=== PATIENT | male | born 1965 | race Caucasian/White ===

== ENCOUNTER → 2017-10-29 | Outpatient (CLI) | payer OTHER ==
[~2017-10-29] MED LIST: ACEDIPPM PO; ACET500; ALBU90OI INH; Bactrim Ds Tab1 EACH PO; CLOP75 PO; HYDACE5 PO; LIVALO2 MG PO; LO-DOSE ASPIRIN81 MG PO; LOSA50 PO; Lopressor 50 mg50 MG PO; METF500 PO; Nicoderm Cq1 EAC1 TD; Omeprazole20 M1; PIOG15 PO; RXCLIN PO
== END ==
LOC: LAB 15:56
DX: Z48.817 Encounter for surgical aftercare following surgery on the skin and subcutaneous tissue (principal); L08.9 Local infection of the skin and subcutaneous tissue, unspecified
CPT/HCPCS: 87070; 87147; 87205

== ENCOUNTER → 2018-01-18 | Outpatient (CLI) | payer OTHER ==
[2018-01-18 13:22] LABS: Microalb/Creat Ratio UR, Rand 14.902 mg/g (0.000-30.000); Microalbumin, Random Urine 15.2 mg/L (0.000-20.000)
== END | disposition home or self-care (01) ==
LOC: LAB 08:30
PROVIDERS: Physician Assistant
DX: E11.65 Type 2 diabetes mellitus with hyperglycemia (principal)
CPT/HCPCS: 82043; 82570

== ENCOUNTER 2018-01-20 06:53 | Day surgery (SDC) | payer OTHER ==
[~2018-01-20] VITALS: Ht 172.7 cm; Wt 98.2 kg
[~2018-01-20 06:53] MED LIST changes: -CLOP75 PO; -LIVALO2 MG PO; -LO-DOSE ASPIRIN81 MG PO; -Lopressor 50 mg50 MG PO; -Nicoderm Cq1 EAC1 TD
[2018-01-20] MEDS ORDERED: CLOP75 PO (07:22)
[2018-01-20] MEDS ORDERED: LIVALO2 MG PO (07:23)
[2018-01-21 04:28] LABS: BASOPHILS ABSOLUTE AUTO 0.05 K/mm3 (0.00-0.23); BASOPHILS PERCENT AUTO 0 % (0-2); EOSINOPHILS PERCENT AUTO 2 % (0-6); Hematocrit 40.7 % (37.0-53.0); Hemoglobin 13.7 g/dL (13.5-17.5); IMMATURE GRAN ABSOLUTE AUTO 0.06 K/mm3 (0.00-0.10); IMMATURE GRAN PERCENT AUTO 1 % (0-1); LYMPHOCYTES ABSOLUTE AUTO 2.82 K/mm3 (0.84-5.20); LYMPHOCYTES PERCENT AUTO 25 % (21-46); MONOCYTES ABSOLUTE AUTO 0.85 K/mm3 (0.16-1.47); MONOCYTES PERCENT AUTO 8 % (4-13); Mean Corpuscular HGB 32.1 pg (26.0-34.0); Mean Corpuscular HGB Conc 33.7 g/dL (31.5-36.5); Mean Corpuscular Volume 95 fL (80-100); Mean Platelet Volume 9.6 fL (9.1-12.4); NEUTROPHILS ABSOLUTE AUTO 7.21 K/mm3 (1.96-9.15); NEUTROPHILS PERCENT AUTO 65 % (41-73); Platelet Count 268 K/mm3 (150-400); RDW Coefficient Variation 13.8 % (11.7-14.2); RDW Standard Deviation 48.1 fL (35.1-46.3); Red Blood Cell Count 4.27 M/mm3 (4.30-5.90); White Blood Cell Count 11.19 K/mm3 (4.00-11.30)
[2018-01-21 04:50] LABS: Anion Gap 7 mmol/L (6-16); Blood Urea Nitrogen 14 mg/dL (8-24); Bun/Creatinine Ratio 25.4 (12.0-20.0); CO2, Blood 22 mmol/L (21-32); Calcium, Blood 8.1 mg/dL (8.5-10.1); Chloride, Blood 109 mmol/L (98-108); Creatinine, Blood 0.55 mg/dL (0.60-1.20); Glomerular Filtration Rate >60 (60-); Glucose, Blood 146 mg/dL (70-99); Potassium, Blood 3.9 mmol/L (3.5-5.5); Sodium, Blood 138 mmol/L (136-145)
[2018-01-21] MEDS ORDERED: LO-DOSE ASPIRIN81 MG PO (08:12)
[2018-01-21] MEDS ORDERED: Lopressor 50 mg50 MG PO (08:41)
[2018-01-21] MEDS ORDERED: Nicoderm Cq1 EAC1 TD (08:42)
== END 2018-01-21 09:27 | disposition home or self-care (01) ==
LOC: MHTC 06:53 → ICUE 13:30 → PCU 22:30 → MHTC 01-21 03:41 → PCU 01-21 03:43 → MHTC 01-21 09:27
PROVIDERS: Internal Medicine Interventional Cardiology
PROC: B241ZZ3 Ultrasonography of Multiple Coronary Arteries, Intravascular (ICD-10-PCS; principal; 2018-01-20)
PROC: 027034Z Dilation of Coronary Artery, One Artery with Drug-eluting Intraluminal Device, Percutaneous Approach (ICD-10-PCS; principal; 2018-01-20)
PROC: B211YZZ Fluoroscopy of Multiple Coronary Arteries using Other Contrast (ICD-10-PCS; principal; 2018-01-20)
PROC: 4A023N7 Measurement of Cardiac Sampling and Pressure, Left Heart, Percutaneous Approach (ICD-10-PCS; principal; 2018-01-20)
DX: I25.118 Atherosclerotic heart disease of native coronary artery with other forms of angina pectoris (principal); E11.9 Type 2 diabetes mellitus without complications; I10 Essential (primary) hypertension; E78.5 Hyperlipidemia, unspecified; F17.210 Nicotine dependence, cigarettes, uncomplicated; E78.00 Pure hypercholesterolemia, unspecified; Z82.49 Family history of ischemic heart disease and other diseases of the circulatory system; N19 Unspecified kidney failure
CPT/HCPCS: 36415; 80048; 85025; 85347; 85730; 92978; 93005; 93010; 93454; 99152; 99153; C1753; C1760; C1769; C1874; C1894; C9600; J0360; J1644; J2250; J3010; J7030; Q9967

== ENCOUNTER 2018-01-25 22:30 | Emergency (ER) | payer OTHER ==
[~2018-01-25] VITALS: Ht 172.7 cm; Wt 96.6 kg
[~2018-01-25 22:30] MED LIST changes: +CLOP75 PO; +LIVALO2 MG PO; +LO-DOSE ASPIRIN81 MG PO; +Lopressor 50 mg50 MG PO; +Nicoderm Cq1 EAC1 TD
[2018-01-25 23:04] LABS: BASOPHILS ABSOLUTE AUTO 0.05 K/mm3 (0.00-0.23); BASOPHILS PERCENT AUTO 0 % (0-2); EOSINOPHILS ABSOLUTE AUTO 0.37 K/mm3 (0.00-0.68); EOSINOPHILS PERCENT AUTO 3 % (0-6); Hematocrit 43.9 % (37.0-53.0); IMMATURE GRAN ABSOLUTE AUTO 0.07 K/mm3 (0.00-0.10); IMMATURE GRAN PERCENT AUTO 1 % (0-1); LYMPHOCYTES ABSOLUTE AUTO 3.35 K/mm3 (0.84-5.20); LYMPHOCYTES PERCENT AUTO 27 % (21-46); MONOCYTES PERCENT AUTO 6 % (4-13); Mean Corpuscular HGB 32.1 pg (26.0-34.0); Mean Corpuscular HGB Conc 34.2 g/dL (31.5-36.5); Mean Corpuscular Volume 94 fL (80-100); Mean Platelet Volume 9.2 fL (9.1-12.4); NEUTROPHILS ABSOLUTE AUTO 7.77 K/mm3 (1.96-9.15); NEUTROPHILS PERCENT AUTO 63 % (41-73); Platelet Count 283 K/mm3 (150-400); RDW Coefficient Variation 13.2 % (11.7-14.2); RDW Standard Deviation 45.2 fL (35.1-46.3); Red Blood Cell Count 4.68 M/mm3 (4.30-5.90); White Blood Cell Count 12.41 K/mm3 (4.00-11.30)
[2018-01-25 23:26] LABS: Alanine Aminotransfer (ALT/SGP 29 U/L (12-78); Albumin, Blood 3.5 g/dL (3.4-5.0); Albumin/Globulin Ratio 0.8 (0.8-1.8); Alk Phos 91 U/L (50-136); Anion Gap 10 mmol/L (6-16); Aspartate Aminotrans (AST/SGOT 16 U/L (12-37); Bilirubin, Total 0.2 mg/dL (0.1-1.0); Blood Urea Nitrogen 14 mg/dL (8-24); CO2, Blood 22 mmol/L (21-32); Chloride, Blood 104 mmol/L (98-108); Creatinine, Blood 0.56 mg/dL (0.60-1.20); Globulin, Blood 4.5 g/dL (2.2-4.0); Glomerular Filtration Rate >60 (60-); Glucose, Blood 118 mg/dL (70-99); Potassium, Blood 3.7 mmol/L (3.5-5.5); Sodium, Blood 136 mmol/L (136-145); Troponin I <0.015 ng/mL (0.000-0.040)
== END 2018-01-25 23:59 | disposition home or self-care (01) ==
LOC: ER 22:30
PROVIDERS: Emergency Medicine
DX: R07.2 Precordial pain (principal); I10 Essential (primary) hypertension; F17.200 Nicotine dependence, unspecified, uncomplicated; Z88.5 Allergy status to narcotic agent; Z88.0 Allergy status to penicillin; Z88.6 Allergy status to analgesic agent; Z79.51 Long term (current) use of inhaled steroids; Z79.899 Other long term (current) drug therapy; Z79.84 Long term (current) use of oral hypoglycemic drugs
CPT/HCPCS: 71046; 80053; 84484; 85025; 93005; 93010; 99283

== ENCOUNTER 2021-12-19 10:18 | Inpatient (IN) | payer OTHER ==
[~2021-12-19] VITALS: Ht 172.7 cm; Wt 93.2 kg
[~2021-12-19 10:18] MED LIST changes: +ATOR40TA PO; +Aspirin EC81 MG PO; +Celebrex200 MG PO; +FOLI1 PO; +Isosorbide Mono60 MG PO; +LOSARTAN POTAS100 MG PO; +METO100ER PO; +METTREX2.5 PO; +RANO500T PO
[2021-12-19 10:59] LABS: BASOPHILS ABSOLUTE AUTO 0.07 K/mm3 (0.00-0.23); BASOPHILS PERCENT AUTO 1 % (0-2); EOSINOPHILS ABSOLUTE AUTO 0.12 K/mm3 (0.00-0.68); EOSINOPHILS PERCENT AUTO 1 % (0-6); Hematocrit 53.8 % (37.0-53.0); Hemoglobin 18.4 g/dL (13.5-17.5); IMMATURE GRAN ABSOLUTE AUTO 0.07 K/mm3 (0.00-0.10); IMMATURE GRAN PERCENT AUTO 1 % (0-1); LYMPHOCYTES ABSOLUTE AUTO 2.67 K/mm3 (0.84-5.20); LYMPHOCYTES PERCENT AUTO 23 % (21-46); MONOCYTES ABSOLUTE AUTO 0.56 K/mm3 (0.16-1.47); MONOCYTES PERCENT AUTO 5 % (4-13); Mean Corpuscular HGB 31.6 pg (26.0-34.0); Mean Corpuscular HGB Conc 34.2 g/dL (31.5-36.5); Mean Corpuscular Volume 92 fL (80-100); Mean Platelet Volume 10.8 fL (9.1-12.4); NEUTROPHILS ABSOLUTE AUTO 7.98 K/mm3 (1.96-9.15); NEUTROPHILS PERCENT AUTO 70 % (41-73); Platelet Count 202 K/mm3 (150-400); RDW Coefficient Variation 12.8 % (11.7-14.2); RDW Standard Deviation 43.7 fL (35.1-46.3); Red Blood Cell Count 5.83 M/mm3 (4.30-5.90); White Blood Cell Count 11.47 K/mm3 (4.00-11.30)
[2021-12-19 13:32] LABS: Alanine Aminotransfer (ALT/SGP 25 U/L (12-78); Albumin, Blood 3.5 g/dL (3.4-5.0); Albumin/Globulin Ratio 0.8 (0.8-1.8); Alk Phos 142 U/L (50-136); Anion Gap 9 mmol/L (6-16); Aspartate Aminotrans (AST/SGOT 18 U/L (12-37); Bilirubin, Total 0.5 mg/dL (0.1-1.0); Blood Urea Nitrogen 17 mg/dL (8-24); Bun/Creatinine Ratio 29.1 (12.0-20.0); CO2, Blood 23 mmol/L (21-32); Chloride, Blood 101 mmol/L (98-108); Creatinine, Blood 0.58 mg/dL (0.60-1.20); Globulin, Blood 4.6 g/dL (2.2-4.0); Glomerular Filtration Rate >60 (60-); Glucose, Blood 269 mg/dL (70-99); Potassium, Blood 3.8 mmol/L (3.5-5.5); Sodium, Blood 133 mmol/L (136-145); Total Protein, Blood 8.1 g/dL (6.4-8.2)
[2021-12-19 16:58] LABS: Anti-Xa UFH, PHA Monitoring <0.10 IU/mL; International Normalized Ratio 1.02; Prothrombin Time Results 10.7 Sec (9.7-11.5)
[2021-12-19 17:21] LABS: CHOL/HDL RATIO 6.4; Cholesterol 262 mg/dL (50-200); HDL Cholesterol 41 mg/dL (>39); LDL/HDL RATIO 4.4; Low Density Lipoprotein Chol 179 mg/dL (0-110); Triglycerides 211 mg/dL (30-160); Very Low Density Lipoprot Chol 42 mg/dL (6-32)
--- NOTE | 2021-12-19 18:55 | NUR ---
TRANSFER UPDATE ASSUMED CARE OF PT AT 1735. REPORT RECIEVED FROM ER NURSE AT 1720. PT ARRIVED TO UNIT VIA GURNEY AND ON RA. PT ABLE TO TRANSFER SELF FROM GURNEY TO PCU BED. PT REPORTS HAVING ACTIVE CHEST DISCOMFORT, 06/10. HEPARIN RUNNING PER EMAR. NS RUNNING PER EMAR.
--- NOTE | 2021-12-20 01:25 | NUR ---
CRITICAL VALUE: RECEIVED CALL FROM [facility] AT 0027 PATIENT'S TROPONIN WAS 3523 AT 2315 DRAW. SPOKE WITH ADRIANNE BORGES AND CALLED HOSPITALIST. HOSPITALIST CALLED BACK AT 0115 AND STATED NO NEW ORDERS.
[2021-12-20 03:43] LABS: BASOPHILS ABSOLUTE AUTO 0.05 K/mm3 (0.00-0.23); BASOPHILS PERCENT AUTO 0 % (0-2); EOSINOPHILS ABSOLUTE AUTO 0.14 K/mm3 (0.00-0.68); EOSINOPHILS PERCENT AUTO 1 % (0-6); Hemoglobin 16.3 g/dL (13.5-17.5); IMMATURE GRAN ABSOLUTE AUTO 0.06 K/mm3 (0.00-0.10); IMMATURE GRAN PERCENT AUTO 1 % (0-1); LYMPHOCYTES ABSOLUTE AUTO 2.74 K/mm3 (0.84-5.20); LYMPHOCYTES PERCENT AUTO 24 % (21-46); MONOCYTES ABSOLUTE AUTO 0.81 K/mm3 (0.16-1.47); MONOCYTES PERCENT AUTO 7 % (4-13); Mean Corpuscular HGB 31.1 pg (26.0-34.0); Mean Corpuscular Volume 92 fL (80-100); Mean Platelet Volume 10.5 fL (9.1-12.4); NEUTROPHILS ABSOLUTE AUTO 7.66 K/mm3 (1.96-9.15); NEUTROPHILS PERCENT AUTO 67 % (41-73); Platelet Count 199 K/mm3 (150-400); RDW Coefficient Variation 12.8 % (11.7-14.2); RDW Standard Deviation 43.3 fL (35.1-46.3); Red Blood Cell Count 5.24 M/mm3 (4.30-5.90); White Blood Cell Count 11.46 K/mm3 (4.00-11.30)
[2021-12-20 04:02] LABS: Anion Gap 8 mmol/L (6-16); Blood Urea Nitrogen 17 mg/dL (8-24); Bun/Creatinine Ratio 23.4 (12.0-20.0); CO2, Blood 23 mmol/L (21-32); Calcium, Blood 8.8 mg/dL (8.5-10.1); Chloride, Blood 104 mmol/L (98-108); Creatinine, Blood 0.73 mg/dL (0.60-1.20); Glomerular Filtration Rate >60 (60-); Glucose, Blood 283 mg/dL (70-99); Potassium, Blood 3.7 mmol/L (3.5-5.5); Sodium, Blood 135 mmol/L (136-145)
--- NOTE | 2021-12-20 05:39 | NUR ---
SHIFT SUMMARY: PATIENT HYPERTENSIVE BPS AND TACHYCARDIC EARLY IN SHIFT - MEDICATED PER EMAR. BPS CAME DOWN TO 140S SYSTOLIC. O2 WNL - PATIENT IS DAILY SMOKER. TROPONIN WAS 3523 - SEE PREVIOUS NOTE. PLAN IS FOR PATIENT TO HAVE AN ANGIO 12/20 AND HAS BEEN NPO SINCE MIDNIGHT. HEPARIN DRIP WAS CHANGED FROM 15 TO 17 U/KG/HR AT 0235; NS ALSO RUNNING PER EMAR. PATIENT'S A1C IN 16S; GLUCOSE WAS 305. PATIENT STATES NORMAL TO BE IN 300S AND DOES NOT TAKE INSULIN AT HOME. PSYCHOTHERAPIST COUNSELOR KATERINA DISCUSSED HIS A1C WITH HIM AND HE WAS SURPRISED HOW HIGH IT WAS. SPOUSE IS RN AT [place]. PATIENT PLEASANT AND COOPERATIVE WITH CARE. AMBULATES TO TOILET WITH SUPERVISION. WILL CONTINUE TO MONITOR AND REPORT TO DAY RN.
[2021-12-20 10:25] LABS: Influenza A, PCR NEGATIVE (NEGATIVE); Influenza B, PCR NEGATIVE (NEGATIVE); Resp Syncytial Virus, PCR NEGATIVE (NEGATIVE); SARS-Cov-2 (COVID-19) PCR, MMC NEGATIVE (NEGATIVE)
--- NOTE | 2021-12-20 17:42 | NUR ---
END OF SHIFT: PATIENT IS S/P STENT X 2. R GROIN SITE. THE SITE RECOVERED WELL, WITH ONLY A LITTLE BIT OF OOZING THAT REQUIRED A DRESSING CHANGE. ONCE MANUAL PRESSURE AND DRESSING CHANGE, NO INCREASE IN OOZING. PATIENT'S CHEST PAIN RESOLVED SINCE ANGIO. PATIENT HAS HAD INCREASED CBG'S HOWEVER, SLIDING COVERAGE HAS BEEN INCREASED FOR THE PM DOSAGING. PATIENT HAS NOT RECIEVED ANY PRN HTN MEDICATIONS. STILL ON TELE SR 80-90'S. DENIES SOB. PATIENT NOT AMBULATED SINCE ANGIO DUE TO THE OCCASSIONAL OOZING INCREASE WITH THE BASIC INCREASES IN BED DEGREES. PATIENT RECIEVED LOADING DOSE OF PLAVIX AND ASPIRIN. PEDAL PULSES WERE ALREADY +1 STIL THE SAME. PATIENT HAS NO QUESTIONS OR CONCERNS. WILL CONTINUE TO MONITOR.
--- NOTE | 2021-12-21 01:09 | NUR ---
CARE ASSUMPTION: RECEIVED REPORT FROM JT RN AT 1850. PATIENT RECEIVED RIGHT GROIN ANGIO WITH 2 STENTS AT 1030 AND RETURNED TO UNIT AT 1206. VSS, GROIN SITE HAD OOZED PRIOR IN SHIFT AND DRESSING WAS CHANGED AT THAT TIME. THIS RN WITH OFF-GOING RN ASSESSED SITE AT SHIFT CHANGE - SITE WNL. PATIENT DENIED PAIN AT SITE, CHEST PAIN, AND SOB. DISTAL PULSES PALPABLE. PATIENT STATED HE FEELS A LOT BETTER AND IS LOOKING FORWARD TO GOING HOME TOMORROW.
[2021-12-21 03:19] LABS: BASOPHILS ABSOLUTE AUTO 0.06 K/mm3 (0.00-0.23); BASOPHILS PERCENT AUTO 1 % (0-2); EOSINOPHILS ABSOLUTE AUTO 0.15 K/mm3 (0.00-0.68); EOSINOPHILS PERCENT AUTO 1 % (0-6); Hematocrit 46.3 % (37.0-53.0); Hemoglobin 15.7 g/dL (13.5-17.5); IMMATURE GRAN ABSOLUTE AUTO 0.09 K/mm3 (0.00-0.10); IMMATURE GRAN PERCENT AUTO 1 % (0-1); LYMPHOCYTES ABSOLUTE AUTO 2.03 K/mm3 (0.84-5.20); LYMPHOCYTES PERCENT AUTO 17 % (21-46); MONOCYTES ABSOLUTE AUTO 1.11 K/mm3 (0.16-1.47); MONOCYTES PERCENT AUTO 9 % (4-13); Mean Corpuscular HGB 31.5 pg (26.0-34.0); Mean Corpuscular HGB Conc 33.9 g/dL (31.5-36.5); Mean Corpuscular Volume 93 fL (80-100); Mean Platelet Volume 10.5 fL (9.1-12.4); NEUTROPHILS ABSOLUTE AUTO 8.72 K/mm3 (1.96-9.15); NEUTROPHILS PERCENT AUTO 72 % (41-73); Platelet Count 184 K/mm3 (150-400); RDW Coefficient Variation 13.2 % (11.7-14.2); RDW Standard Deviation 44.6 fL (35.1-46.3); Red Blood Cell Count 4.99 M/mm3 (4.30-5.90); White Blood Cell Count 12.16 K/mm3 (4.00-11.30)
[2021-12-21 03:36] LABS: Anion Gap 7 mmol/L (6-16); Blood Urea Nitrogen 14 mg/dL (8-24); Bun/Creatinine Ratio 18.8 (12.0-20.0); CO2, Blood 22 mmol/L (21-32); Calcium, Blood 8.4 mg/dL (8.5-10.1); Chloride, Blood 105 mmol/L (98-108); Creatinine, Blood 0.75 mg/dL (0.60-1.20); Glomerular Filtration Rate >60 (60-); Glucose, Blood 262 mg/dL (70-99); Potassium, Blood 3.8 mmol/L (3.5-5.5); Sodium, Blood 134 mmol/L (136-145)
--- NOTE | 2021-12-21 05:30 | NUR ---
SHIFT SUMMARY: PATIENT'S SYSTOLIC BP <160 T/O SHIFT AND HR <100, OTHER VS WNL. PATIENT'S ANGIO SITE WNL. PATIENT DENIES CHEST PAIN AND SOB. PATIENT IS ANXIOUS TO GO HOME TODAY AND SLEEP IN HIS OWN BED. PLEASANT AND COOPERATIVE WITH CARE. NO ADVERSE EVENTS THIS SHIFT. WILL CONTINUE TO MONITOR AND REPORT TO ONCOMING RN.
[2021-12-21] MEDS ORDERED: ASPI81CH PO (09:20)
[2021-12-21] MEDS ORDERED: CLOP75 PO (09:21)
--- NOTE | 2021-12-21 10:10 | NUR ---
DISCHARGE SUMMARY: PATIENT DISCHARGE VIA WHEELCHAIR, PATIENT DENIES CHEST PAIN, SOB. STENT CARDS PLACED IN DC FOLDER, COMPLETE UNDERSTANDING OF DISCHARGE INSTRUCTIONS, THOUROUGHLY EDUCATED ON MEDICATION ADHERENCE, PATIENT HAD CLEAR AND COMPLETE UNDERSTANDING. PLAVIX ASA AGREEMENT, GROIN SITE AGREEMENT SIGNED. PATIENT ON RA AND SR UPPER 90'S AT DISCHARGE BEFORE IV AND TELE DC'D. PATIENT HAD NO FURTHER QUESTIONS OR CONCERNS. PATIENT TO PRODUCT MANAGER MEDICAL DEVICE MEDICATIONS TOMORROW, PLAVIX AND ASA GIVEN THIS AM.
== END 2021-12-21 10:13 | disposition home or self-care (01) | DRG 247 ==
LOC: ER 10:18 → PCU 10:19
PROVIDERS: Emergency Medicine; Family Medicine; Internal Medicine Interventional Cardiology; Physician Assistant; ADMIT Internal Medicine
PROC: 027034Z Dilation of Coronary Artery, One Artery with Drug-eluting Intraluminal Device, Percutaneous Approach (ICD-10-PCS; principal; 2021-12-20)
PROC: B2111ZZ Fluoroscopy of Multiple Coronary Arteries using Low Osmolar Contrast (ICD-10-PCS; 2021-12-20)
DX: I21.4 Non-ST elevation (NSTEMI) myocardial infarction (principal); I16.1 Hypertensive emergency; I35.0 Nonrheumatic aortic (valve) stenosis; I25.10 Atherosclerotic heart disease of native coronary artery without angina pectoris; E78.5 Hyperlipidemia, unspecified; J44.9 Chronic obstructive pulmonary disease, unspecified; L40.50 Arthropathic psoriasis, unspecified; Z88.0 Allergy status to penicillin; Z88.5 Allergy status to narcotic agent; Z20.822 Contact with and (suspected) exposure to COVID-19; E11.9 Type 2 diabetes mellitus without complications; Z79.4 Long term (current) use of insulin; I25.2 Old myocardial infarction; Z95.5 Presence of coronary angioplasty implant and graft; L40.59 Other psoriatic arthropathy; Z53.29 Procedure and treatment not carried out because of patient's decision for other reasons; E66.9 Obesity, unspecified; Z98.890 Other specified postprocedural states; Z88.6 Allergy status to analgesic agent; Z68.31 Body mass index [BMI] 31.0-31.9, adult
CPT/HCPCS: 0241U; 36415; 71046; 80048; 80053; 80061; 82947; 83036; 84484; 85025; 85347; 85520; 85610; 93005; 93010; 93306; 93454; 96374; 99152; 99153; 99285-25; A9270; C1725; C1760; C1769; C1874; C1887; C9600; C9601; J0360; J1644; J2250; J3010; J7030; J7040; J7050; Q9967

== ENCOUNTER 2021-12-30 10:03 | Emergency (ER) | payer OTHER ==
[~2021-12-30] VITALS: Ht 172.7 cm; Wt 93.4 kg
[~2021-12-30 10:03] MED LIST changes: +ASPI81CH PO
[2021-12-30 11:20] LABS: Hematocrit 38.2 % (37.0-53.0); Hemoglobin 13.3 g/dL (13.5-17.5); Mean Corpuscular HGB Conc 34.8 g/dL (31.5-36.5); Mean Corpuscular Volume 92 fL (80-100); RDW Coefficient Variation 12.8 % (11.7-14.2); RDW Standard Deviation 43.6 fL (35.1-46.3); Red Blood Cell Count 4.16 M/mm3 (4.30-5.90); White Blood Cell Count 22.45 K/mm3 (4.00-11.30)
[2021-12-30 11:21] LABS: Mean Platelet Volume 11.1 fL (9.1-12.4)
[2021-12-30 11:29] LABS: Alanine Aminotransfer (ALT/SGP 19 U/L (12-78); Albumin, Blood 2.4 g/dL (3.4-5.0); Albumin/Globulin Ratio 0.5 (0.8-1.8); Alk Phos 111 U/L (50-136); Anion Gap 10 mmol/L (6-16); Aspartate Aminotrans (AST/SGOT 17 U/L (12-37); Bilirubin, Total 0.4 mg/dL (0.1-1.0); Blood Urea Nitrogen 16 mg/dL (8-24); Bun/Creatinine Ratio 23.3 (12.0-20.0); CO2, Blood 22 mmol/L (21-32); Calcium, Blood 8.9 mg/dL (8.5-10.1); Chloride, Blood 99 mmol/L (98-108); Creatinine, Blood 0.69 mg/dL (0.60-1.20); Globulin, Blood 4.7 g/dL (2.2-4.0); Glomerular Filtration Rate >60 (60-); Glucose, Blood 310 mg/dL (70-99); Potassium, Blood 3.9 mmol/L (3.5-5.5); Sodium, Blood 131 mmol/L (136-145); Total Protein, Blood 7.1 g/dL (6.4-8.2)
[2021-12-30 11:50] LABS: BAND PERCENT MAN 2 % (0-8); BASOPHILS PERCENT MAN 0 % (0-2); EOSINOPHILS ABSOLUTE MAN 0.22 K/mm3 (0.00-0.68); EOSINOPHILS PERCENT MAN 1 % (0-6); LYMPHOCYTES ABSOLUTE MAN 2.91 K/mm3 (0.84-5.20); LYMPHOCYTES PERCENT MAN 13 % (21-46); MONOCYTES ABSOLUTE MAN 2.69 K/mm3 (0.16-1.47); MONOCYTES PERCENT MAN 12 % (4-13); NEUTROPHILS ABSOLUTE MAN 16.61 K/mm3 (1.96-9.15); SEG NEUTROPHILS PERCENT MAN 72 % (41-73); TOTAL CELLS COUNTED 100
[2021-12-30 11:53] LABS: Platelet Count 242 K/mm3 (150-400)
[2021-12-30] MEDS ORDERED: Norco 7.5-3251 EACH PO (14:22)
[2021-12-30] MEDS ORDERED: SULTRIDS PO (14:22)
== END 2021-12-30 15:09 | disposition home or self-care (01) ==
LOC: ER 10:03
PROVIDERS: Physician Assistant
DX: L03.314 Cellulitis of groin (principal); J44.9 Chronic obstructive pulmonary disease, unspecified; E11.9 Type 2 diabetes mellitus without complications; E78.5 Hyperlipidemia, unspecified; I25.2 Old myocardial infarction; F17.210 Nicotine dependence, cigarettes, uncomplicated; Z88.0 Allergy status to penicillin; Z88.5 Allergy status to narcotic agent; Z79.899 Other long term (current) drug therapy
CPT/HCPCS: 36415; 80053; 83605; 85025; 87040; 87147; 93926; 96365; 96366; 96375; 99284-25; J3010; J3370; J7050

== ENCOUNTER 2022-03-06 00:27 | Day surgery (SDC) | payer OTHER ==
[~2022-03-06 00:27] MED LIST changes: +Norco 7.5-3251 EACH PO; +SULTRIDS PO
== END 2022-03-06 22:51 | disposition home or self-care (01) ==
LOC: WOUND 00:27
DX: L08.9 Local infection of the skin and subcutaneous tissue, unspecified (principal); L03.115 Cellulitis of right lower limb; I72.4 Aneurysm of artery of lower extremity; T88.8XXD Other specified complications of surgical and medical care, not elsewhere classified, subsequent encounter; T82.837D Hemorrhage due to cardiac prosthetic devices, implants and grafts, subsequent encounter; I87.2 Venous insufficiency (chronic) (peripheral); I73.9 Peripheral vascular disease, unspecified; F17.210 Nicotine dependence, cigarettes, uncomplicated; Z88.5 Allergy status to narcotic agent; Z88.8 Allergy status to other drugs, medicaments and biological substances; Z88.6 Allergy status to analgesic agent
CPT/HCPCS: 99406; A9270; G0463

== ENCOUNTER 2022-03-13 01:48 | Day surgery (SDC) | payer OTHER | END 2022-03-13 23:01 | disposition home or self-care (01) | LOC: WOUND 01:48 | DX: E11.622 Type 2 diabetes mellitus with other skin ulcer (principal); L98.492 Non-pressure chronic ulcer of skin of other sites with fat layer exposed; L08.9 Local infection of the skin and subcutaneous tissue, unspecified; I72.4 Aneurysm of artery of lower extremity; L03.115 Cellulitis of right lower limb; T88.8XXD Other specified complications of surgical and medical care, not elsewhere classified, subsequent encounter; I87.2 Venous insufficiency (chronic) (peripheral); I73.9 Peripheral vascular disease, unspecified; T82.837D Hemorrhage due to cardiac prosthetic devices, implants and grafts, subsequent encounter | CPT/HCPCS: 99406; A9270; G0463 ==

== ENCOUNTER 2022-03-20 01:10 | Day surgery (SDC) | payer OTHER | END 2022-03-20 23:23 | disposition home or self-care (01) | LOC: WOUND 01:10 | DX: E11.622 Type 2 diabetes mellitus with other skin ulcer (principal); L98.492 Non-pressure chronic ulcer of skin of other sites with fat layer exposed; I25.2 Old myocardial infarction; M19.90 Unspecified osteoarthritis, unspecified site; I10 Essential (primary) hypertension; E11.51 Type 2 diabetes mellitus with diabetic peripheral angiopathy without gangrene; I72.4 Aneurysm of artery of lower extremity; L08.9 Local infection of the skin and subcutaneous tissue, unspecified; L03.115 Cellulitis of right lower limb; T88.8XXD Other specified complications of surgical and medical care, not elsewhere classified, subsequent encounter; I87.2 Venous insufficiency (chronic) (peripheral); T82.837D Hemorrhage due to cardiac prosthetic devices, implants and grafts, subsequent encounter | CPT/HCPCS: 99406; A9270; G0463 ==

== ENCOUNTER 2022-03-27 05:19 | Day surgery (SDC) | payer OTHER | END 2022-03-27 22:50 | disposition home or self-care (01) | LOC: WOUND 05:19 | DX: E11.622 Type 2 diabetes mellitus with other skin ulcer (principal); L97.112 Non-pressure chronic ulcer of right thigh with fat layer exposed; L08.9 Local infection of the skin and subcutaneous tissue, unspecified; I72.4 Aneurysm of artery of lower extremity; T88.8XXD Other specified complications of surgical and medical care, not elsewhere classified, subsequent encounter; T82.837D Hemorrhage due to cardiac prosthetic devices, implants and grafts, subsequent encounter; E11.51 Type 2 diabetes mellitus with diabetic peripheral angiopathy without gangrene; S51.009D Unspecified open wound of unspecified elbow, subsequent encounter; X58.XXXD Exposure to other specified factors, subsequent encounter | CPT/HCPCS: A9270; G0463 ==

== ENCOUNTER 2022-04-03 03:29 | Day surgery (SDC) | payer OTHER | END 2022-04-03 23:16 | disposition home or self-care (01) | LOC: WOUND 03:29 | DX: E11.622 Type 2 diabetes mellitus with other skin ulcer (principal); L98.492 Non-pressure chronic ulcer of skin of other sites with fat layer exposed; T81.41XA Infection following a procedure, superficial incisional surgical site, initial encounter; L08.9 Local infection of the skin and subcutaneous tissue, unspecified; I25.2 Old myocardial infarction; I10 Essential (primary) hypertension; E11.51 Type 2 diabetes mellitus with diabetic peripheral angiopathy without gangrene; T82.837D Hemorrhage due to cardiac prosthetic devices, implants and grafts, subsequent encounter; S51.009D Unspecified open wound of unspecified elbow, subsequent encounter; Y83.8 Other surgical procedures as the cause of abnormal reaction of the patient, or of later complication, without mention of misadventure at the time of the procedure | CPT/HCPCS: A9270; G0463 ==

== ENCOUNTER 2022-04-10 08:00 | Day surgery (SDC) | payer OTHER | END 2022-04-10 23:59 | disposition home or self-care (01) | LOC: WOUND 08:00 | DX: I72.4 Aneurysm of artery of lower extremity (principal); L08.9 Local infection of the skin and subcutaneous tissue, unspecified; I73.9 Peripheral vascular disease, unspecified; T88.8XXD Other specified complications of surgical and medical care, not elsewhere classified, subsequent encounter; T82.837D Hemorrhage due to cardiac prosthetic devices, implants and grafts, subsequent encounter; S51.009D Unspecified open wound of unspecified elbow, subsequent encounter; X58.XXXD Exposure to other specified factors, subsequent encounter | CPT/HCPCS: G0463 ==

== ENCOUNTER 2022-04-17 01:20 | Day surgery (SDC) | payer OTHER | END 2022-04-17 22:57 | disposition home or self-care (01) | LOC: WOUND 01:20 | DX: E11.622 Type 2 diabetes mellitus with other skin ulcer (principal); L98.492 Non-pressure chronic ulcer of skin of other sites with fat layer exposed; L08.9 Local infection of the skin and subcutaneous tissue, unspecified; I72.4 Aneurysm of artery of lower extremity; T88.8XXD Other specified complications of surgical and medical care, not elsewhere classified, subsequent encounter; T82.837D Hemorrhage due to cardiac prosthetic devices, implants and grafts, subsequent encounter; S51.009D Unspecified open wound of unspecified elbow, subsequent encounter; X58.XXXD Exposure to other specified factors, subsequent encounter; E11.51 Type 2 diabetes mellitus with diabetic peripheral angiopathy without gangrene; I10 Essential (primary) hypertension | CPT/HCPCS: A9270; G0463 ==

== ENCOUNTER 2022-05-06 08:00 | Day surgery (SDC) | payer OTHER | END 2022-05-06 23:59 | disposition home or self-care (01) | LOC: WOUND 08:00 | DX: Z09 Encounter for follow-up examination after completed treatment for conditions other than malignant neoplasm (principal); S51.009D Unspecified open wound of unspecified elbow, subsequent encounter; E11.51 Type 2 diabetes mellitus with diabetic peripheral angiopathy without gangrene; I72.4 Aneurysm of artery of lower extremity; T88.6XXD Anaphylactic reaction due to adverse effect of correct drug or medicament properly administered, subsequent encounter; L08.9 Local infection of the skin and subcutaneous tissue, unspecified; T82.837D Hemorrhage due to cardiac prosthetic devices, implants and grafts, subsequent encounter; I25.2 Old myocardial infarction; I10 Essential (primary) hypertension; M19.90 Unspecified osteoarthritis, unspecified site; Z86.31 Personal history of diabetic foot ulcer | CPT/HCPCS: G0463 ==

== ENCOUNTER 2022-05-25 05:44 | Day surgery (SDC) | payer OTHER | END 2022-05-25 23:26 | disposition home or self-care (01) | LOC: WOUND 05:44 | DX: T81.89XA Other complications of procedures, not elsewhere classified, initial encounter (principal); E11.622 Type 2 diabetes mellitus with other skin ulcer; L98.492 Non-pressure chronic ulcer of skin of other sites with fat layer exposed; E11.51 Type 2 diabetes mellitus with diabetic peripheral angiopathy without gangrene; I72.4 Aneurysm of artery of lower extremity; L08.9 Local infection of the skin and subcutaneous tissue, unspecified; T82.837D Hemorrhage due to cardiac prosthetic devices, implants and grafts, subsequent encounter; Y83.9 Surgical procedure, unspecified as the cause of abnormal reaction of the patient, or of later complication, without mention of misadventure at the time of the procedure | CPT/HCPCS: 99406; G0463 ==

== ENCOUNTER 2022-06-08 01:09 | Day surgery (SDC) | payer OTHER | END 2022-06-08 23:43 | disposition home or self-care (01) | LOC: WOUND 01:09 | DX: Z09 Encounter for follow-up examination after completed treatment for conditions other than malignant neoplasm (principal); Z87.2 Personal history of diseases of the skin and subcutaneous tissue; I72.4 Aneurysm of artery of lower extremity; E11.51 Type 2 diabetes mellitus with diabetic peripheral angiopathy without gangrene; L08.9 Local infection of the skin and subcutaneous tissue, unspecified | CPT/HCPCS: G0463 ==

== ENCOUNTER → 2022-08-17 | Outpatient (CLI) | payer OTHER ==
[2022-08-17 11:49] LABS: BASOPHILS ABSOLUTE AUTO 0.04 K/mm3 (0.00-0.23); BASOPHILS PERCENT AUTO 0 % (0-2); EOSINOPHILS ABSOLUTE AUTO 0.03 K/mm3 (0.00-0.68); EOSINOPHILS PERCENT AUTO 0 % (0-6); Hematocrit 39.9 % (37.0-53.0); Hemoglobin 13.9 g/dL (13.5-17.5); IMMATURE GRAN ABSOLUTE AUTO 0.06 K/mm3 (0.00-0.10); IMMATURE GRAN PERCENT AUTO 1 % (0-1); LYMPHOCYTES ABSOLUTE AUTO 1.54 K/mm3 (0.84-5.20); LYMPHOCYTES PERCENT AUTO 13 % (21-46); MONOCYTES ABSOLUTE AUTO 0.98 K/mm3 (0.16-1.47); MONOCYTES PERCENT AUTO 8 % (4-13); Mean Corpuscular HGB 32.8 pg (26.0-34.0); Mean Corpuscular HGB Conc 34.8 g/dL (31.5-36.5); Mean Corpuscular Volume 94 fL (80-100); Mean Platelet Volume 10.8 fL (9.1-12.4); NEUTROPHILS ABSOLUTE AUTO 9.32 K/mm3 (1.96-9.15); NEUTROPHILS PERCENT AUTO 78 % (41-73); Platelet Count 180 K/mm3 (150-400); RDW Standard Deviation 52.1 fL (35.1-46.3); Red Blood Cell Count 4.24 M/mm3 (4.30-5.90); White Blood Cell Count 11.97 K/mm3 (4.00-11.30)
== END ==
LOC: LAB 11:45 → LAB SHORT 11:45
PROVIDERS: Family Medicine
DX: L03.115 Cellulitis of right lower limb (principal)
CPT/HCPCS: 85025; 87040